=== PATIENT | female | born 1985 | race Caucasian/White ===

== ENCOUNTER 2021-06-02 00:16 | Emergency (ER) | payer OTHER, SELFPAY ==
[2021-06-02 00:20] VITALS: BP 154/87; PULSE 93; RESP 20; TEMP 36.4; O2SAT 99
--- NOTE | 2021-06-02 00:28 | ED.WOUNDLAC ---
HPI - Wound/Laceration General Chief Complaint: Wound/Laceration Stated Complaint: Finger Laceration Time Seen by Provider: 06/02/21 00:28 History of Present Illness HPI narrative: 36-year-old female patient is here with a cut to the tip of the right index finger with a measuring tape approximately at 10:00 p.m.. Patient states that she tried to control the bleeding with liquid Band-Aid at home and not work and it bleeds any time she hits the hand the against any thing. Unsure about her tetanus status Related Data Home Medications Medication Instructions Recorded Confirmed escitalopram oxalate 10 mg PO DAILY 06/02/21 06/02/21 Allergies Allergy/AdvReac Type Severity Reaction Status Date / Time No Known Allergies Verified 02/25/21 11:01 Review of Systems Review of Systems: All systems reviewed & are unremarkable except as noted in HPI and below Exam Narrative: patient is alert and appears in no acute distress. Vital signs are stable. Right index finger has less than 1 cm superficial laceration to the dip on the volar aspect. There is no gaping. There is very minimal bleeding. The rest of the hand appears normal. Patient otherwise has normal physical exam Course Course Emergency Course: the the superficial lacerations closed with derma abebe. Patient has been updated on a tetanus status. Discharge Plan Discharge Clinical Impression: Laceration Patient Disposition: Home, Self-Care Condition: Stable Instructions: Antibiotic Form Additional Instructions: Keep the finger dry and clean. Do not use any Band-Aids or any ointments. Prescriptions: No Action escitalopram oxalate 10 mg tablet 10 mg PO DAILY RF: 0 Follow-up/Referrals: UNKNOWN,DOCTOR [Primary Care Provider] -
[2021-06-02] MEDS: TETANUS,DIPHTHERIA,AC PERTUSSIS ADULT 0.5 ML (ADACEL) (00:39)
[2021-06-02 00:40] VITALS: BP 154/84; PULSE 93; RESP 20; TEMP 36.4; O2SAT 99
== END 2021-06-02 00:42 | disposition home or self-care (01) ==
PROVIDERS: Emergency Provider Emergency Medicine
DX: S61.210A Laceration without foreign body of right index finger without damage to nail, initial encounter (principal); W45.8XXA Other foreign body or object entering through skin, initial encounter
CPT/HCPCS: 12001; 90471; 90715; 99282

== ENCOUNTER 2022-08-29 17:17 | Emergency (ER) | payer OTHER, SELFPAY ==
--- NOTE | ~2022-08-29 | XR_ITS ---
EXAM: XR shoulder LT min 2V DATE: 08/29/2022 18:00 HISTORY: PAIN AFTER REPETITIVE MOVEMENT AT WORK. . COMPARISON: None available. FINDINGS: Normal mineralization. No fracture or dislocation. No lytic or blastic lesion. Joint space s are maintained. No erosion or periosteal change. Soft tissues within normal limits. IMPRESSION: No acute osseous finding in the left shoulder. Reviewed, dictated and finalized at location K.
[2022-08-29 17:22] VITALS: BP 146/99; PULSE 84; RESP 16; TEMP 36.6; O2SAT 99
[2022-08-29 17:27] VITALS: BP 146/99; PULSE 84; RESP 16; TEMP 36.6; O2SAT 99
--- NOTE | 2022-08-29 17:58 | ED.EXTPRO ---
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 SHE SAYS SHE DOES REPETITIVE MOTIONS WITH HER SHOULDER AND HER WORK IS [employer] TO MAKE IT WORSE. SHE HAS WORKED THERE FOR SEVERAL YEARS. SHE DENIES ANY NUMBNESS OR WEAKNESS. DENIES ANY TRAUMA. DENIES ANY OTHER PAIN OR INJURIES OR COMPLAINTS. SHE HAS BEEN TAKING IBUPROFEN 600 MG EVERY 6 TO 8 HOURS. DENIES ANY PAIN IN HER LEFT ELBOW SHOULDER OR NECK DENIES ANY BRUISING OR SWELLING. Related Data Home Medications Medication Instructions Recorded Confirmed escitalopram oxalate 10 mg tablet 10 mg PO DAILY 06/02/21 08/29/22 Allergies Allergy/AdvReac Type Severity Reaction Status Date / Time No Known Allergies Verified 02/25/21 11:01 Review of Systems Cardiovascular: Cardiovascular: Reports no additional cardiovascular complaints and Denies chest pain Respiratory: Respiratory: Reports no additional respiratory complaints, Denies cough and Denies dyspnea Musculoskeletal: Musculoskeletal: Reports no additional musculoskeletal complaints, Reports as per HPI, Denies back pain, Denies myalgias, Reports arthralgias, Denies joint swelling and Denies muscle cramps Exam Const: General: healthy appearing Nutritional Appearance: well nourished Orientation/consciousness: patient oriented x3 Limitations: no limitations Other: WHITE FEMALE APPEARS IN NO APPARENT DISTRESS. NECK IS SUPPLE NONTENDER WITH FULL RANGE OF MOTION. LEFT SHOULDER NEXT OF FULL RANGE OF MOTION. MILD POSTERIOR SHOULDER TENDERNESS OVER THE MUSCLES. THERE IS NO INCREASED PAIN WITH RANGE OF MOTION OF THE SHOULDER. ELBOW WRIST ARE FINE. NEUROVASCULAR INTACT TO THE LEFT UPPER EXTREMITY. MOTOR STRENGTH AND SENSATIONS NORMAL. LUNGS ARE CLEAR HEART IS REGULAR RATE RHYTHM WITHOUT MURMURS GALLOPS OR RUBS. HENMT: Head: normal to inspection Course Course Emergency Course: DISCUSSED EVALUATION AND PLAN. ALL QUESTIONS WERE ASKED AND ANSWERED. Vital Signs Vital signs: Vital Signs Temperature 36.6 C 08/29/22 17:22 Pulse Rate 84 08/29/22 17:22 Respiratory Rate 16 08/29/22 17:22 Blood Pressure 146/99 H 08/29/22 17:22 Pulse Oximetry 99 08/29/22 17:22 Oxygen Delivery Room Air 08/29/22 17:22 Temperature 36.6 C 08/29/22 17:27 Pulse Rate 84 08/29/22 17:27 Respiratory Rate 16 08/29/22 17:27 Blood Pressure 146/99 H 08/29/22 17:27 Pulse Oximetry 99 08/29/22 17:27 Oxygen Delivery Room Air 08/29/22 17:27 MDM - Extremity (Nontraumatic) Imaging Data Radiologist's impression: X-RAY LEFT SHOULDER WAS NEGATIVE. Discharge Plan Discharge Clinical Impression: Left shoulder strain Patient Disposition: Home, Self-Care Condition: Stable Instructions: Shoulder Sprain (ED) Additional Instructions: TYLENOL 1000 MG 4 TIMES A DAY NEEDED FOR PAIN . IBUPROFEN 400 MG EVERY 6 HOURS NEEDED FOR PAIN. MASSAGE WITH A TENNIS BALL DISCUSSED FOLLOW-UP WITH PRIVATE MEDICAL DOCTOR. RETURN IF YOU GET WORSE OR DEVELOPS ANY NEW SYMPTOMS. Prescriptions: No Action escitalopram oxalate 10 mg tablet 10 mg PO DAILY Follow-up/Referrals: UNKNOWN,DOCTOR [Primary Care Provider] -
[2022-08-29 18:15] VITALS: BP 146/99; PULSE 84; RESP 16; TEMP 36.6; O2SAT 99
== END 2022-08-29 18:26 | disposition home or self-care (01) ==
PROVIDERS: Emergency Provider Emergency Medicine
DX: S46.912A Strain of unspecified muscle, fascia and tendon at shoulder and upper arm level, left arm, initial encounter (principal)
CPT/HCPCS: 73030; 99283

== ENCOUNTER 2023-07-15 11:11 | Outpatient (CLI) | payer OTHER, SELFPAY ==
--- NOTE | ~2023-07-15 | MMUS_ITS ---
EXAMINATION: MM diagnostic grey BI w willem, US breast RT limited HISTORY: Upper outer quadrant right breast lump TECHNIQUE: Bilateral full-field ML, MLO and CC and spot right MLO and CC 3-D tomosynthesis images wer e performed and synthetic 2-D images were generated. CAD analysis was submitted and interpreted. High resolution right upper outer quadrant breast ultrasound was performed. COMPARISON: None BREAST PARENCHYMAL COMPOSITION: The breasts are heterogeneously dense, which may obscure small masses . FINDINGS: MAMMOGRAPHIC FINDINGS: No suspicious mass or architectural distortion, malignant calcification, skin thickening or retractio n is detected. ULTRASOUND: No suspicious mass or suspicious shadowing, cyst or other significant sonographic abnormalities detec earline in the upper outer quadrant of the right breast where the patient complains of a lump. IMPRESSION: 1. No mammographic or right upper outer quadrant sonographic evidence of malignancy; if there is any clinically suspicious palpable abnormality, further evaluation may be indicated as clinically appropr iate. 2. Routine annual mammographic screening is recommended BI-RADS Category 1: Negative Reviewed, dictated and finalized at location A. IMPRESSION: 1. No mammographic or right upper outer quadrant sonographic evidence of malign jarrett; if there is any clinically suspicious palpable abnormality, further evalu ation may be indicated as clinically appropriate. 2. Routine annual mammographic screening is recommended BI-RADS Category 1: Negative
== END 2023-07-15 11:12 | disposition home or self-care (01) ==
LOC: ANHIMG 11:16
PROVIDERS: PCP Obstetrics & Gynecology; Visit Provider Obstetrics & Gynecology
DX: N63.10 Unspecified lump in the right breast, unspecified quadrant (principal)
CPT/HCPCS: 76642; 77062; 77066; G0279

== ENCOUNTER 2024-06-28 10:15 | Emergency (ER) | payer OTHER, SELFPAY ==
--- NOTE | ~2024-06-28 | XR_ITS ---
Portable chest x-ray Comparison: None Clinical History: Shortness of breath Findings: Questionable minimal haziness left lung base. Right lung clear. Cardiomediastinal silhoue tte is stable. Bones and soft tissues are unremarkable. Impression: Possible subtle left lower lobe pneumonia. Reviewed, dictated and finalized at location . Impression: Possible subtle left lower lobe pneumonia.
[2024-06-28 10:15] VITALS: BP 134/82; PULSE 82; RESP 16; TEMP 36.7; O2SAT 100
[2024-06-28 10:26] VITALS: O2SAT 100
[2024-06-28 10:44] LABS: Add Urine Microscopic? YES; Appearance Urine Clear (Clear); Basophils Absolute Auto 0.02 K/mm3 (0.00-0.10); Basophils Percent Auto 0.3 % (0.0-1.0); Bilirubin Urine Negative (Negative); Blood Urine Negative (Negative); Color Urine Light Yellow (Yellow); Eosinophils Absolute Auto 0.11 K/mm3 (0.02-0.50); Eosinophils Percent Auto 1.7 % (1.0-6.0); Glucose Urine UA Negative (Negative); Hematocrit 39.5 % (35.0-49.0); Hemoglobin 13.7 g/dL (12.0-15.0); Immature Granulocyte Absolute 0.03 K/mm3 (0.00-0.00); Immature Granulocyte Percent A 0.5 % (0.0-0.0); Ketones Urine Negative (Negative); Leukocyte Esterase Ur Trace LEU/UL (Negative); Lymphocytes Absolute Auto 2.34 K/mm3 (1.10-4.50); Lymphocytes Percent Auto 35.7 % (18.0-42.0); Mean Corpuscular HGB Conc 34.7 g/dL (32-36); Mean Corpuscular Hemoglobin 31.1 pg (27.0-31.0); Mean Corpuscular Volume 89.6 fL (78.0-102.0); Mean Platelet Volume 9.6 fl (9.2-11.8); Monocytes Absolute Auto 0.79 K/mm3 (0.10-0.90); Monocytes Percent Auto 12.1 % (2.0-11.0); Neutrophils Absolute Auto 3.26 K/mm3 (1.70-7.20); Neutrophils Percent Auto 49.7 % (50.0-70.0); Nitrate Urine Negative (Negative); Platelet Count Result 261 K/mm3 (150-420); Protein Urine Negative (Negative); Red Blood Count 4.41 M/mm3 (4.20-5.40); Specific Grav Ur 1.015 (1.010-1.020); Urobilinogen Urine 0.2 mg/dL (0.2-1.0); White Blood Count 6.6 K/mm3 (4.8-10.8)
[2024-06-28 10:50] LABS: RBC Urine None seen /hpf (0-2); WBC Urine 0-3 /hpf (0-3)
[2024-06-28 10:51] LABS: Bacteria Urine Trace /hpf; Squamous Epithelial Cell Urine Few /hpf (Few)
[2024-06-28 10:57] LABS: D Dimer 0.23 mg/L (0.19-0.50)
[2024-06-28 11:05] LABS: Albumin Level 3.9 g/dL (3.4-5.0); Alkaline Phosphatase 80 U/L (46-116); Anion Gap 9 mmol/L (4-12); Aspartate Amino Transferase 13 U/L (15-37); Bilirubin,Total 0.3 mg/dL (0.00-1.00); Blood Urea Nitrogen 10 mg/dL (7-18); Carbon Dioxide 28 mmol/L (21-32); Chloride 101 mmol/L (98-108); Estimated CRCL calculation 63 ml/min; Estimated Glomerular Filt Rate > 60; Glucose 87 mg/dL (70-99); Osmolality Calculated 284 mOsm/kg (285-295); Potassium 3.6 mmol/L (3.5-5.1); Sodium 138 mmol/L (136-145); Total Protein 7.4 g/dL (6.4-8.2)
--- NOTE | 2024-06-28 11:13 | ED.FEMALEGU ---
HPI - Female Genitourinary General Chief complaint: Shortness of Breath/Dyspnea Stated complaint: shortness of breath Time Seen by Provider: 06/28/24 10:20 Source: patient Mode of arrival: ambulatory Limitations: no limitations History of Present Illness HPI Narrative: this is a 39-year-old female with no significant past medical history presents with some dysuria for the last couple of days called her primary and suggested she come in because she was also complaining of shortness of breath. Patient currently mildly short of breath is breathing easy no cough or congestion no fever chills does have suprapubic tenderness with palpation with dysuria with no hematuria. No fever chills no flank pain. MD elicited complaint: dysuria Onset (ago): day(s) Severity: mild Severity scale (1-10): 2 Quality of pain: dull Consistency: constant Related Data Home Medications Medication Instructions Recorded Confirmed No Home Medications 06/28/24 06/28/24 Allergies Allergy/AdvReac Type Severity Reaction Status Date / Time No Known Allergies Verified 06/28/24 10:17 Review of Systems Review of Systems: All systems reviewed & are unremarkable except as noted in HPI and below PMFSH Past Medical History Medical History Patient denies medical problems Exam Const: General: healthy appearing and no acute distress Nutritional Appearance: well nourished Orientation/consciousness: patient oriented x3 Limitations: no limitations HENMT: Head: normal to inspection Neck: Neck: normal visual inspection Chest: Chest palpation & inspection: normal inspection of the chest Resp: Effort & Inspection: normal respiratory effort Auscultation: clear to auscultation bilaterally Cardio: Rate: regular rate Rhythm: regular rhythm GI: GI Palp: Yes Soft to palpation Auscultation: normal bowel sounds : General: Yes Bladder palpation abnormal Urinary Catheter: Urinary Catheter: patent and draining Back/Spine/Pelvis: Back: no CVA tenderness Skin: General skin exam: normal color Rashes: no rashes Neuro: General: patient oriented x3 Cranial nerves: Yes Nystagmus not present Speech: normal speech Extrem: General: normal to inspection and no clubbing, cyanosis or edema Course Course Emergency Course: labs reviewed with patient patient had a urinalysis performed which shows positive for leukocytes chest x-ray showing subtle left lower lobe infiltrate / pneumonia and will give a g of ceftriaxone IM. Vital Signs Vital signs: Vital Signs Temperature 36.7 C 06/28/24 10:15 Pulse Rate 82 06/28/24 10:15 Respiratory Rate 16 06/28/24 10:15 Blood Pressure 134/82 06/28/24 10:15 Pulse Oximetry 100 06/28/24 10:15 Oxygen Delivery Room Air 06/28/24 10:15 Temperature 36.7 C 06/28/24 10:15 Pulse Rate 82 06/28/24 10:15 Respiratory Rate 16 06/28/24 10:15 Blood Pressure 134/82 06/28/24 10:15 Pulse Oximetry 100 06/28/24 10:26 Oxygen Delivery Room Air 06/28/24 10:26 MDM - Female Genitourinary Lab Data 06/28/24 10:38 06/28/24 10:38 Labs: Lab Results 06/28/24 Range/Units 10:38 WBC 6.6 (4.8-10.8) K/mm3 RBC 4.41 (4.20-5.40) M/mm3 Hgb 13.7 (12.0-15.0) g/dL Hct 39.5 (35.0-49.0) % MCV 89.6 (78.0-102.0) fL MCH 31.1 H (27.0-31.0) pg MCHC 34.7 (32-36) g/dL RDW 12.0 (11.6-14.4) % Plt Count 261 (150-420) K/mm3 MPV 9.6 (9.2-11.8) fl Immature Gran % (Auto) 0.5 H (0.0-0.0) % Neut % (Auto) 49.7 L (50.0-70.0) % Lymph % (Auto) 35.7 (18.0-42.0) % Hubbard % (Auto) 12.1 H (2.0-11.0) % Eos % (Auto) 1.7 (1.0-6.0) % Baso % (Auto) 0.3 (0.0-1.0) % Lymph # (Auto) 2.34 (1.10-4.50) K/mm3 Hubbard # (Auto) 0.79 (0.10-0.90) K/mm3 Eos # (Auto) 0.11 (0.02-0.50) K/mm3 Baso # (Auto) 0.02 (0.00-0.10) K/mm3 Abs Immat Gran (auto) 0.03 H (0.00-0.00) K/mm3 Absolute Neuts (
[2024-06-28 11:16] LABS: Alanine Aminotransferase 13 U/L (14-59)
[2024-06-28 11:19] LABS: SARS-CoV-2 RNA PCR Negative (Negative)
[2024-06-28 11:21] LABS: Influenza A QL RT-PCR Negative (Negative); Influenza B QL RT-PCR Negative (Negative); RSV RNA, RT-PCR Negative (Negative)
[2024-06-28] MEDS: cefTRIAXone 1 GM, LIDOCAINE HCL 1% LOCAL INJ 2.1 ML IM (11:32)
[2024-06-28 11:35] VITALS: BP 121/64; PULSE 84; RESP 18; TEMP 36.7; O2SAT 100
== END 2024-06-28 11:35 | disposition home or self-care (01) ==
PROVIDERS: Emergency Provider Emergency Medicine
DX: N30.00 Acute cystitis without hematuria (principal); Z20.822 Contact with and (suspected) exposure to COVID-19
CPT/HCPCS: 36415; 71045; 80053; 81001; 85025; 85380; 87637; 96372; 99283; J0696

== ENCOUNTER 2024-08-17 14:30 | Emergency (ER) | payer OTHER, SELFPAY ==
--- NOTE | ~2024-08-17 | XR_ITS ---
EXAMINATION: XR chest 2V 08/17/2024 15:17 INDICATION: Chest heaviness PROCEDURE: 2 view chest COMPARISON: 06/28/2024 FINDINGS: The lungs are clear. The cardiomediastinal silhouette is within normal limits. There are no pleural effusions. There is no pneumothorax suspected. IMPRESSION: 1: NO ACUTE CARDIOPULMONARY DISEASE. Reviewed, dictated and finalized at location B.
[2024-08-17 14:30] VITALS: BP 126/87; PULSE 86; RESP 18; TEMP 36.7; O2SAT 100
--- NOTE | 2024-08-17 15:22 | PC.NURSE ---
pt resting per cot, using phone. no needs at this time. awaiting lab/xray results.
--- NOTE | 2024-08-17 15:28 | ED.URI ---
HPI - URI/Sore Throat General Chief Complaint: Upper Respiratory Infection Stated Complaint: cough/ Short of breath Time Seen by Provider: 08/17/24 14:48 Source: patient and family Mode of arrival: ambulatory Limitations: no limitations History of Present Illness HPI Narrative: 33 years old white female came to the ED by private car complaining of cough with shortness of breath for roughly 1 week patient woke up at 2:00 a.m. a sore throat, dry cough, sneezing. Been taking ibuprofen at home. 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 She is not sure about sick contact. She denies any fever, chills, nausea, vomiting, chest pain, back pain or abdominal pain. Patient is healthy otherwise, she does vape, drink alcohol occasionally, marijuana occasionally Related Data Allergies Allergy/AdvReac Type Severity Reaction Status Date / Time No Known Allergies Verified 06/28/24 10:17 Review of Systems Review of Systems: All systems reviewed & are unremarkable except as noted in HPI and below PMFSH Past Medical History Medical History Patient denies medical problems Exam Narrative: General appearance: Well-developed, well-nourished Skin: Normal color Head: Normocephalic, nontraumatic Eyes: Clear conjunctiva ENT: Oropharynx normal, ears normal, nose normal Neck: Supple, nontender Chest and respiratory: Airway patent, no respiratory distress, no accessory muscle use Heart: Regular rate/rhythm Abdomen: Soft, nontender, no organomegaly, quiet bowel sounds Vascular: Normal peripheral pulses, normal capillary refill. Musculoskeletal: Normal range of motion, nontender back Neurologic: Alert and oriented ?3, ACID TREATER is normal as tested, no gross motor deficit Course Vital Signs Vital signs: Vital Signs Temperature 36.7 C 08/17/24 14:30 Pulse Rate 86 08/17/24 14:30 Respiratory Rate 18 08/17/24 14:30 Blood Pressure 126/87 08/17/24 14:30 Pulse Oximetry 100 08/17/24 14:30 Oxygen Delivery Room Air 08/17/24 14:30 Temperature 36.7 C 08/17/24 14:30 Pulse Rate 86 08/17/24 14:30 Respiratory Rate 18 08/17/24 14:30 Blood Pressure 126/87 08/17/24 14:30 Pulse Oximetry 100 08/17/24 14:30 Oxygen Delivery Room Air 08/17/24 14:30 MDM - URI/Sore Throat MDM Narrative Medical decision making narrative: patient came to the ED with the symptom of upper respiratory viral infection Vital signs are stable Physical examination is unremarkable Differential diagnosis upper respiratory viral infection Patient tested negative for COVID, flu and RSV Chest x-ray showed no acute abnormalities Diagnosis of upper respiratory viral infection patient was advised to get [id number] cold medicine. And to take Tylenol, ibuprofen as needed. Differential Diagnosis Differential diagnosis: Likely upper respiratory infection, viral infection and influenza Medical Records Attestation: I reviewed the patient's medical records. Lab Data Labs: Lab Results 08/17/24 Range/Units 14:53 Influenza A (RT-PCR) Pending Influenza B (RT-PCR) Pending RSV (RT-PCR) Pending SARS-CoV-2 RNA (RT-PCR) Pending Imaging Data Radiologist's impression: Impressions Chest X-Ray 08/17/24 15:18 IMPRESSION: 1: NO ACUTE CARDIOPULMONARY DISEASE. Critical Care Time Critical Care Time Critical Care Time: No Discharge Plan Discharge Clinical Impression: Upper respiratory infection, viral Patient Disposition: Home, Self-Care Condition: Stable Instructions: Cold Symptoms (ED) Additional Instructions: Return if symptoms are worsening , call
[2024-08-17 15:40] VITALS: BP 117/91; PULSE 70; RESP 16; O2SAT 100
[2024-08-17 15:42] LABS: SARS-CoV-2 RNA PCR Negative (Negative)
[2024-08-17 15:43] LABS: Influenza A QL RT-PCR Negative (Negative); Influenza B QL RT-PCR Negative (Negative); RSV RNA, RT-PCR Negative (Negative)
== END 2024-08-17 15:55 | disposition home or self-care (01) ==
PROVIDERS: Emergency Provider Emergency Medicine
DX: J06.9 Acute upper respiratory infection, unspecified (principal); B97.89 Other viral agents as the cause of diseases classified elsewhere; Z20.822 Contact with and (suspected) exposure to COVID-19
CPT/HCPCS: 71046; 87637; 99283

== ENCOUNTER 2025-02-22 15:29 | Outpatient (CLI) | payer OTHER, SELFPAY ==
--- NOTE | ~2025-02-22 | MM_ITS ---
EXAMINATION: MM screening grey BI w willem HISTORY: Screening TECHNIQUE: Craniocaudal and mediolateral oblique 3-D tomosynthesis images were obtained and synthetic 2-D images were generated. CAD analysis was submitted and interpreted. COMPARISON: 07/15/2023 BREAST PARENCHYMAL COMPOSITION: Dense: The breasts are heterogeneously dense, which may obscure small masses FINDINGS: There is a focal asymmetry laterally with increased density, anterior-middle depth. The lef t breast is stable without evidence for malignancy. IMPRESSION: 1. New focal right breast asymmetry seen on CC view only, located laterally, anterior-middle depth. 2. Additional mammographic views and possible breast ultrasound are recommended. BI-RADS Category 0: Incomplete: Needs additional imaging evaluation. Reviewed, dictated and finalized at location A. IMPRESSION: 1. New focal right breast asymmetry seen on CC view only, located laterally, an terior-middle depth. 2. Additional mammographic views and possible breast ultrasound are recommended . BI-RADS Category 0: Incomplete: Needs additional imaging evaluation.
--- OUTSIDE RECORDS SUMMARY | 2025-02-22 15:38 | XMS_ITS | Clinical Summary ---
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 Gender Identity Not on file Sexual Orientation Not on file Plan of Treatment Health Maintenance Due Date Last Done Comments Annual Physical 1989 Hepatitis C 2004 Hepatitis B Vaccines (1 of 3 - 19+ 3-dose series) 2005 Cervical Cancer Screening Pa p with HPV Testing (Age 30 to 64) Every 5 Years 2016 COVID-19 Vaccine (2023-2 5 season) 2024 11/20/2021, 06/30/2021 Cervical Cancer Screening Pa p Smear (Age 30 to 64) Every 3 Years 12/19/2026 12/19/2023 Cervical Cancer Screening wi th HPV 12/19/2026 DTaP, Tdap and Td Vaccines ( 2 - Td or Tdap) 06/02/2031 06/02/2021 HPV Vaccines Aged Out No longer eligi ble based on patient's age to complete this topic Meningococcal B Vaccine Aged Out No l onger eligible based on patient's age to complete this topic Meningococcal Vaccine Aged Out No merced aba eligible based on patient's age to complete this topic Pneumococcal Vaccine: Pediatrics (0 to 5 Years) and At-Risk Patients (6 to 49 Years) Aged Out No longer eligible b ased on patient's age to complete this topic RSV Immunizations Under 20 Months Aged Out No longer eligible b ased on patient's age to complete this topic Insurance Care Teams Billet Inspector Relationship Specialty Start Date End Date None, Provider, PCP - General UNKNOWN PHYSICIAN SPECIALTY 11/12/24
--- OUTSIDE RECORDS SUMMARY | 2025-02-22 15:38 | XMS_ITS | Clinical Summary ---
Author Organization [facility] Address [address] [place] [address] Care Team Providers Care Brand Ambassador Name Role Phone No, Physician Primary Care Provider [phone] Allergies Active Allergy Reactions Criticality Noted Date Comments Adhesive Rash Medium 12/07/[address] (CYMBALTA) 30 mg capsuleIndicati ons:Fibromyalgi a Take 1 capsule (30 mg total) by mouth daily 60 capsule 12/07/2024 Active Encounters Date Type Department Care Team Description 12/07/2024 3:22 PM [employer] OPER[employer] - 12/07/2024 5:28 PM [employer]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 Denies 12/07/2024 Comments Unknown Sex and Gender Information Value Date Recorded Sex Assigned at Not on file Legal Sex Female 1:15 PM [employer] OPER[employer] Gender Identity Not on file Sexual Orientation Not on file Obstetrics History Last Filed Vital Signs Vital Sign Reading Time Taken Comments Blood Pressure 123/79 12/07/2024 3:30 PM [employer] Pulse 69 12/07/2024 3:30 PM [employer] OPERATOR Temperature 36.9 C (98.4 F) 12/07/2024 3:30 PM [employer] OPERATOR Respiratory Rate 18 12/07/2024 3:30 PM [employer] OPERATOR Oxygen Saturation 100% 12/07/2024 3:30 PM [employer] OPERATOR Inhaled Oxygen Concentration - - Weight 61.2 kg (135 lb) 12/07/2024 1:39 PM [employer] OPER[employer] Height 152.4 cm (5') 12/07/2024 1:39 PM [employer] OPER[employer] Body Mass Index 26.37 12/07/2024 1:39 PM [employer] OPERATOR Plan of Treatment Health Maintenance Due Date Last Done Comments Cervical Cancer Screening 1986 Depression Screening 1986 Hepatitis C Screening 1986 DTaP/Tdap/Td Vaccine (1 - Tdap) 1997 Varicella Vaccines (1 of 2 - 13+ 2-dose series) 1999 Hepatitis B Screening 2004 Regular Well Visit/Exam 18-64 2004 Influenza Vaccine (Season Ended) 2025 HPV Vaccines Aged Out No longer eligi ble based on patient's age to complete this topic Pneumococcal vaccine <65 Aged Out No longer eligible based on patient's age to complete this topic Procedures Procedure Name Priority Date/Time Associated Diagnosis Comments ECG 12-LEAD STAT 12/07/2024 1:44 PM [employer] O[employer] from Last 3 Months Results * ECG 12-LEAD (12/07/2024 1:44 PM [employer] OPERATOR) Narrative [facility] - 12/07/2024 1:44 PM [employer] OPERATOR Kalyn Alvarez MD 12/07/2024 1:45 PM ECG 12 lead Date/Time: 12/07/2024 1:44 PM Performed by: Kalyn Alvarez MD Authorized by: Devan Dominique MD Rate: ECG rate: 75 ECG rate assessment: normal Rhythm: Rhythm: sinus rhythm Ectopy: Ectopy: none QRS: QRS intervals: Normal Conduction: Conduction: abnormal (Short WA) ST segments: ST segments: Normal T waves: T waves: normal Previous ECG: Previous ECG: Unavailable Interpretation: Interpretation: No acute injury pattern Recommended Follow-up: Recommended follow up: further workup in the ED Procedure Note Kalyn Alvarez MD - 12/07/2024 1:44 PM CST Procedure ECG 12 lead Date/Time: 12/07/2024 1:44 PM Performed by: Kalyn Alvarez MD Authorized by: Devan Dominique MD Rate: ECG rate: 75 ECG rate assessment: normal Rhythm: Rhythm: sinus rhythm Ectopy: Ectopy: none QRS: QRS intervals: Normal Conduction: Conduction: abnormal (Short [place]) ST segments: ST segments: Normal T waves: T waves: normal Previous ECG: Previous ECG: Unavailable Interpretation: Interpretation: No acute injury pattern Recommended Follow-up: Recommended follow up: further workup in the ED Kalyn Alvarez MD 12/07/24 [id number] Devan Dominique MD ECG ORDERABLES Final Re sult [facility] from Last 3 Months Insurance [employer] Care Teams Brand Ambassador Relationship Specialty Start Date End Date No, Physician PCP - General 12/07/24
--- OUTSIDE RECORDS SUMMARY | 2025-02-22 15:38 | XMS_ITS | Referral Summary ---
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] on file Legal Sex Female 1:15 PM PROFILE GRINDER Gender Identity Not on file Sexual Orientation Not on file Last Filed Vital Signs Vital Sign Reading Time Taken Comments Blood Pressure 123/79 12/07/2024 3:30 PM PROFILE GRINDER Pulse 69 12/07/2024 3:30 PM PROFILE GRINDER Temperature 36.9 C (98.4 F) 12/07/2024 3:30 PM PROFILE GRINDER Respiratory Rate 18 12/07/2024 3:30 PM PROFILE GRINDER Oxygen Saturation 100% 12/07/2024 3:30 PM PROFILE GRINDER Inhaled Oxygen Concentration - - Weight 61.2 kg (135 lb) 12/07/2024 1:39 PM PROFILE GRINDER Height 152.4 cm (5') 12/07/2024 1:39 PM PROFILE GRINDER Body Mass Index 26.37 12/07/2024 1:39 PM PROFILE GRINDER Plan of Treatment Not on file Procedures Procedure Name Priority Date/Time Associated Diagnosis Comments ECG 12-LEAD STAT 12/07/2024 1:44 PM PROFILE GRINDER from Last 3 Months Results * ECG 12-LEAD (12/07/2024 1:44 PM PROFILE GRINDER) Narrative [facility] - 12/07/2024 1:44 PM PROFILE GRINDER Kalyn Alvarez MD 12/07/2024 1:45 PM ECG 12 lead Date/Time: 12/07/2024 1:44 PM Performed by: Kalyn Alvarez MD Authorized by: Devan Dominique MD Rate: ECG rate: 75 ECG rate assessment: normal Rhythm: Rhythm: sinus rhythm Ectopy: Ectopy: none QRS: QRS intervals: Normal Conduction: Conduction: abnormal (Short MS) ST segments: ST segments: Normal T waves: [...] QRS intervals: Normal Conduction: Conduction: abnormal (Short MS) ST segments: ST segments: Normal T waves: T waves: normal Previous ECG: Previous ECG: Unavailable Interpretation: Interpretation: No acute injury pattern Recommended Follow-up: Recommended follow up: further workup in the ED Kalyn Alvarez MD 12/07/24 1345 us Devan Dominique MD ECG ORDERABLES Final Re sult [facility] from Last 3 Months Insurance IDPA IDPA Care Teams Paper Carrier Relationship Specialty Start Date End Date No, Physician PCP - General 12/07/24
--- OUTSIDE RECORDS SUMMARY | 2025-02-22 15:38 | XMS_ITS | Continuity of Care Document ---
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 Patient will come back in a year unless there are new symptoms. [email or web address] Not available 02/21/2025 10:26:53 Plan of Treatment Reminders Order Date Submit Date Provider Last Modified By Organization Details Last Modified Time Details Appointments None recorded. Lab pap, IG + HR HPV - HPV regardless but if HPV is positive need subtyping 16,18/45ad d STI to pap GC/CT/Tric h 2024 025 [facility] (Lab), [address], [place], [address], 5 15:25:05 Referral gastroente rologist referral 2024 025 [facility], [address], [address], [place], [address], 5 12:56:32 Procedures None recorded. Surgeries None recorded. Imaging MAMMO, screening, digital, bilateral - right dense breast tissue 2024 025 [email or web address], [address], [place], [address], 5 10:26:24 Medication Orders None recorded. Patient TargetsNo targets recorded. Patient InstructionsNo instructions recorded. 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 15:05:39 Bleeding [id number] Completed 201804/08/2021 Abnormal uterine and vaginal bleeding, unspecifi ed;Record ed Elsewhere : No Locati on: [facility] So urce: EHR Chron ic: N Practic e ID: [id number] Bill able Time: 11:30:00 AM Juju ames [facility] 1 15:05:35 Removal of intraute rine device Completed 201704/08/2021 REMOVAL OF IUD;Recor ded Elsewhere : No Locati on: [facility] So urce: EHR Chron ic: N Practic e ID: [id number] Bill able Time: 11:00:00 AM Juju [place] [facility] 1 15:05:37 Problem Notes None recorded. Procedures Surgical History Date Name Laterality Status Provider Name and Address Organization Details Recorded Time 03/16/20 24 IUD Removal completed Terrence Perez MD [address], [place], [address], [facility] 03/16/2024 16:55:09 12/19/19 24 Date of Last Pap Smear completed Irene Villatoro [facility] 12/19/2023 14:13:09 07/15/20 23 Date of Last Mammogram completed Irene Villatoro [facility] 12/19/2023 14:14:01 04/22/20 23 Excision and closure completed Terrence Perez MD [address], [place], [address], [facility] 04/22/2023 15:11:51 04/22/20 23 biopsy of vulva completed Irene Villatoro [facility] 12/19/2023 14:16:35 10/06/20 22 Colposcopy completed Terrence Perez MD [address], [place], [address], [facility] 10/06/2022 19:29:41 10/06/[address] [facility] 10/12/2022 12:20:31 05/07/20 21 Colposcopy completed Terrence Perez MD [address], [place], [address], [facility] 05/07/2021 19:01:16 05/07/[address] [facility] 04/12/2022 12:03:50 05/07/20 21 Colposcopy completed [facility] 04/12/2022 12:04:11 04/23/20 21 IUD Insertion completed Terrence Perez MD [address], [place], [address], [facility] 04/23/2021 11:55:39 10/31/19 21 extraction of wisdom tooth completed Irene Villatoro [facility] 12/19/2023 14:16:12 10/31/19 16 extraction of wisdom tooth completed Irene Villatoro [facility] 12/19/2023 14:16:05 05/23/20 05 Caesarean Section completed Irene Villatoro [facility] 12/19/2023 14:15:35 10/31/18 86 hernia repair completed Irene Villatoro [facility] 12/19/2023 14:16:50 Imaging Results None recorded. Procedure Notes None recorded. Medical Equipment None Reported. Allergies Allergen ID Allergen Name Allergen Category Reaction Reaction Severity Criticality Documentation Date Start Date Code Code System Note Provider Name and Address Organization Details Recorded Time 31687 ethinyl estradiol / norelgest romin medicatio n rash moderate Not available 04/08/2021 17329 7 RxNorm Juju [place] kwaku [facility] 16:32:46 Medications Name Sig Start Date Stop Date Status Note LastModified by Organization Details LastModified Time amoxicill in 500 mg capsule 04/08 completed Not Available Not Available Not Available Mirena 21 mcg/24 hr (up to 8 years) 52 mg intrauter ine device Take by intraute rine route. 03/16 completed Not Available Not Available Not Available bupropion HCl SR 150 mg tablet,12 hr sustained -release 12/19 completed Not Available Not Available Not Available hydrocodo ne 5 mg-acetam inophen 325 mg tablet 04/08 completed Not Available Not Available Not Available Adderall 5 mg tablet take 1 tablet by oral route 2 times every day before breakfas t and at noon 04/08 completed Prescrib ed Elsewher e: Yes Loca tion: Sarah schwartz [facility] M odify By: [email or web address] z Encoun ter DateTime : 02/04/20 18 01:45:00 PM Not Available Not Available Not Available metronida zole 500 mg tablet 04/08 completed Not Available Not Available Not Available imiquimod 5 % topical cream packet APPLY TO THE AFFECTED AREA(S) BY TOPICAL ROUTE 5 TIMES PER WEEK @ HS x 16wks. Rub in area until lotion is no longer visible. 04/05 completed Not Available Not Available Not Available diclofena c sodium 50 mg tablet,de layed release 02/10 /2023 completed Not Available Not Available Not Available ergocalci ferol (vitamin D2) 1,250 mcg (50,000 unit) capsule Take 1 capsule every week by oral route. 12/10 completed Not Available Not Available Not Available methylpre dnisolone 4 mg tablets in a dose pack 12/10 completed Not Available Not Available Not Available Prozac 10 mg capsule take 2 capsule by oral route every day 04/08 completed Prescrib ed Elsewher e: Yes Loca tion: [facility] odify By: [email or web address] Encoun ter DateTime : 02/04/20 01:45:00 PM Not Available Not Available Not Available sertralin e 50 mg tablet Take 1 tablet every day by oral route. 04/05 completed Not Available Not Available Not Available naproxen 500 mg tablet 04/12 completed Not Available Not Available Not Available escitalop dylon 10 mg tablet Take 1 tablet every day by oral route. 12/19 completed Not Available Not Available Not Available escitalop dylon 20 mg tablet 12/10 completed Not Available Not Available Not Available cyclobenz aprine 5 mg tablet 12/10 completed Not Available Not Available Not Available nitrofura ntoin monohydra te/macroc rystals 100 mg capsule Take 1 capsule every 12 hours by oral route for 7 days. 02/23 completed Not Available Not Available Not Available duloxetin e 30 mg capsule,d elayed release TAKE 1 CAPSULE BY MOUTH EVERY DAY 02/21 completed Not Available Not Available Not Available Cymbalta active Not Available Not Avai lable Not Available Xulane 150 mcg-35 mcg/24 hr transderm al patch apply 1 patch by transder mal route every week 04/08 completed Prescrib ed Elsewher e: No Locat ion: [facility] odify By: [email or web address] Encounte r DateTime : 02/10/20 19 09:00:00 AM Not Available Not Available Not Available BinaxNOW COVID-19 Ag Self Test kit TEST DIRECTED TODAY 12/10 completed Not Available Not Available Not Available Vitals Date Recorded Body height Body mass index (BMI) Body weight Systolic blood pressure Diastolic blood pressure Provider Name and Address Organization Details Last Updated DateTime 02/21/2025 162.56 cm 26.2 kg/m2 16760.48 g 142 mm[Hg] 85 mm[Hg] Mercedez Cook [facility] 10:27:20 Social History Question Answer Notes LastModified by Organizat ion Details LastModified Time Tobacco Smoking Status Former Smoker Zulema Gordon kwaku, [facility] 06/17/2023 10:45:19 Do You Have An Advance Directive? No Information not available 04/08/2021 What Is Your Level Of Alcohol Consumption? Occasional Information not available 04/08/2021 How Many Years Have You Consumed Alcohol? 10 Information not available 04/08/2021 Are You Blind Or Do You Have Difficulty Seeing? No Information not available 04/08/2021 What Is Your Level Of Caffeine Consumption? Moderate Information not available 04/08/2021 How Much Tobacco Do You Chew? None Information not available 04/08/2021 In The 14 Days Before Symptom Onset, Have You Had Close Contact With A Laboratory-confir med COVID-19 While That Case Was Ill? No Information not available 04/08/2021 In The 14 Days Before Symptom Onset, Have You Had Close Contact With A Person Who Is Under Investigation For COVID-19 While That Person Was Ill? No Information not available 04/08/2021 Have You Been To An Area Known To Be High Risk For COVID-19? No Information not available 04/08/2021 Are You Deaf Or Do You Have Serious Difficulty Hearing? No Information not available 04/08/2021 Do You Or Have You Ever Used E-cigarettes Or Vape? Current User Of Electronic Cigarettes [email or web address] Information not available 12/19/2023 What Is The Highest Grade Or Level Of School You Have Completed Or The Highest Degree You Have Received? 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 No Information not available 04/08/2021 Have You Ever Been Counseled For Unhealthy Alcohol Use? No [email or web address] Information not available 12/19/2023 Do You Use Protection During Sex? Usually Information not available 04/08/2021 Do You Use Your Seat Belt Or Car Seat Routinely? Yes Information not available 04/08/2021 Do You Have Smoke And Carbon Monoxide Detectors In Your Home? Yes Information not available 04/08/2021 How Much Tobacco Do You Smoke? No Information not available 04/08/2021 Do You Feel Stressed (tense, Restless, Nervous, Or Anxious, Or Unable To Sleep At Night)? [id number] [email or web address] Information not available 12/19/2023 Do You Use Any Illicit Or Recreational Drugs? No Information not available 04/08/2021 Do You Use Sunscreen Routinely? No Information not available 04/08/2021 Has Tobacco Cessation Counseling Been Provided? No [email or web address] Information not available 12/19/2023 Have You Used IV Drugs? No Information not available 04/08/2021 Do You Or Have You Ever Used Any Other Forms Of Tobacco Or Nicotine? Yes [email or web address] Information not available 12/19/2023 Sex: Unknown Functional Status Question Answer Note LastModified by Organizat ion Details LastModified Time Do you have difficulty walking or climbing stairs? No [email or web address] Information not available 12/19/2023 Are you able to walk? [email or web address] Information not available 04/08/2021 Are you able to care for yourself? Yes [email or web address] Information not available 12/19/2023 Do you have difficulty dressing or bathing? No [email or web address] Information not available 12/19/2023 What is your exercise level? None Information not available 04/08/2021 Mental Status None recorded. Family History Relationship Description Onset Age of this Age Resolved Age Notes LastModified by Organization Details LastModified Time Mother Cyst of ovary [email or web address] Not available 2024 10:01:53 Mother Hypertensive disorder Not available 2020 16:30:39 Father Malignant tumor of colon Not available 2020 16:30:53 Father Malignant tumor of lung Not available 2020 16:31:09 Maternal Grandmother Hypertensive disorder Not available 2020 16:31:19 Maternal Grandfather Malignant tumor of lung Not available 2020 16:31:30 Maternal Grandfather Hypertensive disorder Not available 2020 16:31:39 Maternal Grandfather Malignant neoplasm of brain [email or web address] Not available 2024 10:01:53 Medical History Condition Response Allergies (Food, seasonal, environmental ) Y Other Y Breast Cancer N Drug/Latex Allergies/Reactions Y Blood Transfusion N Dermatologic Disorders N Lung Disease N Defects or Inherited Disease N Breast Problem N Gestational Diabetes N Hematologic disorders N Anesthesia Complications N History of STI Y Deep Vein Thrombosis N Polycystic ovary syndrome N Anxiety Disorder Y Autoimmune disease Y Arthritis N Infertility N Polyps N Acid Reflux (GERD) N History of abnormal pap Y Cancer N Stroke N Varicosities N Neurologic/Epilepsy Y Endometriosis N High Cholesterol N Headaches N Fibromyalgia N Kidney Disease N Heart Problems N Kidney or Bladder Problems N Thyroid Problems N GI Problems Y Eating Disorder N Anemia N Psychiatric Illness Y Ovarian Cancer N Diabetes N Pulmonary (TB, Asthma) N Hepatitis/Liver Disease N No Past Medical History N Eczema N Urinary Tract Infection N Abuse/Domestic Violence N Asthma N Trauma/Violence N Depression/ depression Y Heart Disease N Pre-Eclampsia N Hypertension N Osteoporosis N Thrombophilias N Gynecological History Statement/Question Response Abnormal Pap Yes Flow Light Date of Last Mammogram 07/15/2023 Date of LMP 02/08/2025 N On BCP's at Conception? N STIs/STDs Yes Was last menstrual period normal Y HPV Vaccine N Colposcopy 05/07/2021 Duration of Flow (days) 5 Current Control Method None Age at First Child 20 Are cycles usually normal Y Frequency of Cycle (Q days) 30 Sexually Active? Y Menses Monthly Y Date of DEXA bone scan Age of first menstrual cycle 14 Date of Last Pap Smear 12/19/2023 Sexual Problems? N LMP Definite N Obstetrics History GPAL:G 3 P 3 0 0 3 Type Value Full Term 3 Living 3 Total 3 Past Encounters Encounter ID Performer Location Encounter Start Date Encounter Closed Date Diagnosis/Indication Diagnosis SNOMED-CT Code Diagnosis ICD10 Code Diagnosis Note [id number] SHANNON [facility] [address] [address] 02/21/2025 10:01:29 02/22/2025 10:26:24 Gynecologic examination [id number] Z01.419 WWEB - declined. Discussed TTC/timed IC/encoura ged daily PNVoffered fertility consult/RE I referral - she declined at this timePap - done todaySTI screen - gc/ct/tric h testing added to papRoutine labs - PCPBP precaution s discussedR TC in 1 yr or sooner if needed It is strongly advised to have an annual flu shot and up can obtain at most pharmacies . If you have not had a TDap shot in the last 10 years you should obtain one as well. Discussed with patient & provided with informatio n regarding the HPV vaccine if applicable . Encourage safe sexual practices, to use condoms and limit partners if not already in a monogamous relationsh ip. Do monthly self breast exams. BRCA testing is now available for patients with strong genetic history of female cancer. If interested contact the office. Engage in regular exercise. Avoid tobacco and illicit drugs. This lifestyle behavior pattern will lead to less health conditions and longer life span. If BMI greater than 25 dietary consult advised. Questions answered. Screening mammography 24 441720 Z12.31 Venereal d isease screening 625971986 Z11.3 Screening for malignant neoplasm of colon 764026294 Z12.11 referral for screening colonoscop y d/t fam hx Health Concerns Section Related Observation LastModified by Organization Detai ls LastModified Time None Recorded Concern Status LastModified by Organization Details LastModified Time None Recorded Payers Encounter Date Sequence Insurance Name Policy Number Policy Blair Covered Member ID Blair Member ID Guarantor Name 02/21/2025 1 [place] [employer] Phoebe Lewis [id number] Phoebe Lewis Notes Date Note Type Note Provider Name and Address Organization Details Recorded Time 02/21/2025 text/html Annual GYNReport ed bypatient.Menstrua l cycle:Normal menses Urinary symptoms:No hematuria; No incontinence Vulva:No genital lesion Vagina:Normal vaginal discharge Breast:No breast pain; No breast lump; No nipple discharge Current Contraception:Melani h control not practiced Sexual complaints:No sexual complaints; No pain during intercourse; Normal libido Menopausal Symptoms:No menopausal symptoms; Normal vaginal lubrication Psychological symptoms:No depression; No anxiety; No PMDD Preventive measures:Encourage self breast examination; Encourage regular exercise; Encourage no tobacco use; Encourage regular mammograms starting age 40Notes:39yo wwelast pap 12/2023 : nilm, HPV (-)mammogram last 2022 (done d/t dense breast) fam h/o father with colon cancer diagnosed age 41 TTC x 1 yr SHANNON Dwyer [address], [place], [address], [facility] 02/22/2025 09:26:43 OBGyn Episode No OBEpisode recorded.
--- OUTSIDE RECORDS SUMMARY | 2025-02-22 15:39 | XMS_ITS | Data Portability ---
Author Organization [facility] [place] Address [address] [place] [address] Care Team Providers Care Tank Builder Name Role Phone [facility] Primary Care Provider Assessment Encounter Date Assessment Date Assessment LastModified by Organization Details LastModified Time 01/30/2024 01/30/2024 This patient is a 38 -year-old female with pelvic pain. We have agreed to complete the evaluation with pelvic ultrasound. The patient will return after the pelvic ultrasound to discuss those findings and to develop a treatment plan. A comprehensive history and physical exam was performed today. We spent over 25 minutes [id number]. The patient was given precautions. She will contact clinic if pelvic pain increases in frequency or intensity. Also notify clinic of any new symptoms associated with pelvic pain. She does not appear to have an acute pelvic infection today, but was asked to contact us Immediately with nausea, vomiting, fever, chills. [email or web address] Not available 01/30/2024 16:42:51 02/21/2025 02/21/2025 Annual gynecological exam performed. Patient will come back in a year unless there are new symptoms. [email or web address] Not available 02/21/2025 10:26:53 Plan of Treatment Reminders Order Date Submit Date Provider Last Modified By Organization Details Last Modified Time Details Appointments None recorded. Lab pap, IG + HR HPV - HPV regardless but if HPV is positive need subtyping 16,18/45ad d STI to pap GC/CT/Tric h 2024 025 [facility] (Lab), [address], [place], [address], 15:25:05 test, urine 04/01/ 2024 04/01/2 024 [email or web address] [place], [address], [place], [address], 4 15:26:44 urinalysis , dipstick 2023 024 [email or web address] [place], [address], [place], [address], 4 15:28:05 Referral gastroente rologist referral 2024 025 [facility], [address], [place], [address], 5 12:56:32 Procedures None recorded. Surgeries None recorded. Imaging MAMMO, screening, digital, bilateral - right dense breast tissue 2024 025 [email or web address] [facility], [address], [place], [address], 5 10:26:24 US, pelvis [address]23 [address], [address], [place], [address], 4 21:56:27 US, transvagin al [address], [address], [place], [address], 4 21:56:27 Medication Orders None recorded. Patient TargetsNo targets recorded. Patient InstructionsNo instructions recorded. Reason for Referral Pool Hand Referral for Screening for malignant neoplasm of colon Referring Physician: Ivonne Gay, PROFESSIONAL BENEFITS SALES CONSULTANT, Encounter Date: 02/21/2025 Results Created Date Observation Date Name Description Value Unit Range Abnormal Flag Note LastModifiedBy Organization Detail LastModifiedTime 01/30/202024 urina lysis , dipst ick Leukocytes trace Not Available [facility] [address], [place], [address], 01/30/2024 15:27:05 01/30/20 24 01/30/2024 urina lysis , dipst ick Nitrite normal Not Available [place] [address], [place], [address], 01/30/2024 15:27:05 01/30/20 24 01/30/2024 urina lysis , dipst ick Urobilinogen normal Not Available [facility] alberto [address], [place], [address], 01/30/2024 15:27:05 01/30/20 24 01/30/2024 urina lysis , dipst ick Protein trace Not Available [place] [address], [place], [address], 01/30/2024 15:27:05 01/30/20 24 01/30/2024 urina lysis , dipst ick pH 8 Not Available [place] [address], [place], [address], 01/30/2024 15:27:05 01/30/20 24 01/30/2024 urina lysis , dipst ick Specific Duncan 1.000 Not Available [facility] [address], [place], [address], 01/30/2024 15:27:05 01/30/20 24 01/30/2024 urina lysis , dipst ick Ketone normal Not Available [place] [address], [place], [address], 01/30/2024 15:27:05 01/30/20 24 01/30/2024 urina lysis , dipst ick Bilirubin normal Not Available Sarah schwartz [address], [place], [address], 01/30/2024 15:27:05 01/30/20 24 01/30/2024 urina lysis , dipst ick Glucose normal Not Available [place] [address], [place], [address], 01/30/2024 15:27:05 01/30/20 24 01/30/2024 urina lysis , dipst ick Appearance normal Not Available [facility] juan [address], [place], [address], 01/30/2024 15:27:05 01/30/20 24 01/30/2024 urina lysis , dipst ick Color normal Not Available [place] [address], [place], [address], 01/30/2024 15:27:05 01/30/20 24 01/30/2024 pregn jarrett test, urine HCG negati ve Not Available [place] [address], [place], [address], 01/30/2024 15:26:02 02/10/20 24 02/10/2024 US, pelvi s No observ ation record ed. [facility] [address], [place], [address], 02/10/2024 17:49:12 02/10/20 24 02/10/2024 US, trans vagin al No observ ation record ed. [facility] [address], [place], [address], 02/10/2024 17:49:23 02/10/20 24 02/10/2024 US, pelvi s No observ ation record ed. [email or web address] [address], [place], [address], 02/10/2024 21:48:44 Result Notes None recorded. 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 15:05:39 Bleeding [id number] Completed 201804/08/2021 Abnormal uterine and vaginal bleeding, unspecifi ed;Record ed Elsewhere : No Locati on: [facility] So urce: EHR Chron ic: N Practic e ID: [id number] Bill able Time: 11:30:00 AM Jujufarida Vegas [facility] 15:05:35 Removal of intraute rine device Completed 201704/08/2021 REMOVAL OF IUD;Recor ded Elsewhere : No Locati on: [facility] So urce: EHR Chron ic: N Practic e ID: [id number] Bill able Time: 11:00:00 AM Juju ames [facility] 15:05:37 Problem Notes None recorded. Procedures Surgical History Date Name Laterality Status Provider Name and Address Organization Details Recorded Time 03/16/20 24 IUD Removal completed Terrence Perez MD [address], [place], [address], [facility] 03/16/2024 16:55:09 12/19/19 24 Date of Last Pap Smear completed Irene Villatoro [facility] 12/19/2023 14:13:09 07/15/20 23 Date of Last Mammogram completed Irene Villatoro [facility] 12/19/2023 14:14:01 04/22/20 23 Excision and closure completed Terrence Perez MD [address], [place], [address], [facility] 04/22/2023 15:11:51 04/22/20 23 biopsy of vulva completed Irene Villatoro [facility] 12/19/2023 14:16:35 10/06/20 22 Colposcopy completed Terrence Perez MD [address], [place], [address], [facility] 10/06/2022 19:29:41 10/06/20 22 Colposcopy completed Juju [facility] 10/12/2022 12:20:31 05/07/20 21 Colposcopy completed Terrence Perez MD [address], [place], [address], [facility] 05/07/2021 19:01:16 05/07/20 21 Colposcopy completed Juju [facility] 04/12/2022 12:03:50 05/07/20 21 Colposcopy completed Juju [facility] 04/12/2022 12:04:11 04/23/20 21 IUD Insertion completed Terrence Perez MD [address], [place], [address], [facility] 04/23/2021 11:55:39 10/31/19 21 extraction of wisdom tooth completed Irene Villatoro [facility] 12/19/2023 14:16:12 10/31/19 16 extraction of wisdom tooth completed Irene Villatoro [facility] 12/19/2023 14:16:05 05/23/20 05 Caesarean Section completed Irene Villatoro [facility] 12/19/2023 14:15:35 10/31/18 86 hernia repair completed Irene Villatoro [facility] 12/19/2023 14:16:50 Imaging Results Imaging Date Name Status LastModified by Organization Details LastModified Time 02/10/2024 US, pelvis completed [facility] [address], [place], [address], 02/10/2024 17:49:12 02/10/2024 US, transvaginal completed [facility] [address], [place], [address], 02/10/2024 17:49:23 02/10/2024 US, pelvis completed [email or web address] [address], [place], [address], 02/10/2024 21:48:44 Procedure Notes None recorded. Medical Equipment None Reported. Allergies Allergen ID Allergen Name Allergen Category Reaction Reaction Severity Criticality Documentation Date Start Date Code Code System Note Provider Name and Address Organization Details Recorded Time 51612 ethinyl estradiol / norelgest romin medicatio n rash moderate Not available 04/08/2021 63630 7 RxNorm Juju ames [facility] 16:32:46 Medications Name Sig [...] Prescrib ed Elsewher e: Yes Loca tion: [facility] odify By: [employer] z Encoun ter DateTime : 02/04/20 18 [...] c sodium 50 mg tablet,de layed release 12/10 completed Not Available Not Available Not [...] route every day 04/08 completed Prescrib ed Rivka e: Yes [facility] By: [email or web address] Encoun ter DateTime : 02/04/20 18 [...] Prescrib ed Elsewher e: No Locat ion: [facility] By: [email or web address] Encounte r DateTime : 02/10/20 09:00:00 AM Not Available Not Available Not Available [employer] COVID-19 Ag Self Test kit TEST DIRECTED TODAY 12/10 completed Not Available Not Available Not Available Vitals Date Recorded Body height Body mass index (BMI) Body weight Systolic blood pressure Diastolic blood pressure Provider Name and Address Organization Details Last Updated DateTime 01/30/2024 162.56 cm 22.5 kg/m2 64244.6 g 139 mm[Hg] 86 mm[Hg] Irene Villatoro [facility] 4 15:24:07 Date Recorded Body height Body mass index (BMI) Body weight Systolic blood pressure Diastolic blood pressure Provider Name and Address Organization Details Last Updated DateTime 02/24/2024 162.56 cm 23 kg/m2 16477.38 g 139 mm[Hg] 90 mm[Hg] Jillian Seo [facility] 4 11:00:13 Date Recorded Body height Body mass index (BMI) Body weight Systolic blood pressure Diastolic blood pressure Provider Name and Address Organization Details Last Updated DateTime 03/16/2024 162.56 cm 22.2 kg/m2 00450.13 g 131 mm[Hg] 84 mm[Hg] Hanna Laguna [facility] 4 15:18:21 Date Recorded Body height Body mass index (BMI) Body weight Systolic blood pressure Diastolic blood pressure Provider Name and Address Organization Details Last Updated DateTime 02/21/2025 162.56 cm 26.2 kg/m2 86885.48 g 142 mm[Hg] 85 mm[Hg] Mercedez Cook [facility] 5 10:27:20 Social History Question Answer Notes LastModified by Organizat ion Details LastModified Time Tobacco Smoking Status Former Smoker Zulema ames [facility] 06/17/2023 10:45:19 Do You [...] Or Vape? Current User Of Electronic Cigarettes [email or web address] Information not available 12/19/2023 What Is The Highest Grade Or Level Of School You Have Completed Or The Highest Degree You Have Received? 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 No Information not available 04/08/2021 Have You Ever Been Counseled For Unhealthy Alcohol Use? No Information not available 12/19/2023 Do You Use [...] Anxious, Or Unable To Sleep At Night)? [id number] [email or web address] Information not available 12/19/2023 Do You Use Any Illicit Or Recreational Drugs? No Information not available 04/08/2021 Do You Use Sunscreen Routinely? No Information not available 04/08/2021 Has Tobacco Cessation Counseling Been Provided? No Information not available 12/19/2023 Have You Used IV Drugs? No Information not available 04/08/2021 Do You Or Have You Ever Used Any Other Forms Of Tobacco Or Nicotine? Yes [email or web address] Information not available 12/19/2023 Sex: Unknown Functional Status Question Answer Note LastModified by Organizat ion Details LastModified Time Do you have difficulty walking or climbing stairs? No [email or web address] Information not available 12/19/2023 Are you able to walk? [email or web address] Information not available 04/08/2021 Are you able to care for yourself? Yes [email or web address] Information not available 12/19/2023 Do you have difficulty dressing or bathing? No [email or web address] Information not available 12/19/2023 What is your exercise level? None Information not available 04/08/2021 Mental Status None recorded. Family History Relationship Description Onset Age of this Age Resolved Age Notes LastModified by Organization Details LastModified Time Mother Cyst of ovary [email or web address] Not available 2024 10:01:53 Mother Hypertensive disorder Not available 2020 16:30:39 Father Malignant tumor of colon Not available 2020 16:30:53 Father Malignant tumor of lung Not available 2020 16:31:09 Maternal Grandmother Hypertensive disorder Not available 2020 16:31:19 Maternal Grandfather Malignant tumor of lung Not available 2020 16:31:30 Maternal Grandfather Hypertensive disorder Not available 2020 16:31:39 Maternal Grandfather Malignant neoplasm of brain [email or web address] Not available 2024 10:01:53 Medical History Condition Response Allergies (Food, seasonal, environmental ) Y Other Y Drug/Latex Allergies/Reactions Y Blood Transfusion N Breast Cancer N Dermatologic Disorders N Lung Disease N Defects or Inherited Disease N Breast Problem N Gestational Diabetes N Hematologic disorders N Anesthesia Complications N History of STI Y Deep Vein Thrombosis N Polycystic ovary syndrome N Anxiety Disorder Y Autoimmune disease Y Arthritis N Polyps N Infertility N Acid Reflux (GERD) N History of abnormal pap Y Cancer N Varicosities N Stroke N Neurologic/Epilepsy Y Endometriosis N High Cholesterol N Fibromyalgia N Headaches N Kidney Disease N Heart Problems N Thyroid Problems N Kidney or Bladder Problems N GI Problems Y Eating Disorder [...] SNOMED-CT Code Diagnosis ICD10 Code Diagnosis Note [id number] Terrence ePrez MD [place] [address] [address] 04/08/2021 14:55:04 04/08/2021 16:48:50 Gynecologic examination 28330194 Z01.419 This patient is here for her annual exam. A thorough history was taken. A physical exam was performed. Age appropriat e routine health screening was ordered, performed, and discussed. Recommende d testing was ordered. She was asked to follow up in one year. She will be informed of any test results. Cholestero l - to check Pap - today The patient is suffering from mixed anxiety/de pression. We talked about treatment options. We agreed to start Zoloft. We will start a trial of 50 mg of Zoloft daily. She will turn 4 weeks to discuss results. To place IUD at future visit. Mixed anxi ety and depressive disorder 477091586 F41.8 [id number] Terrence Perez MD [place] [address] [address] 04/12/2022 11:52:37 04/12/2022 12:40:29 Gynecologic examination 20489434 Z01.419 Z11.51 This patient is here for her annual exam. A thorough history was taken. A physical exam was performed. Age appropriat e routine health screening was ordered, performed, and discussed. Recommende d testing was ordered. She was asked to follow up in one year. She will be informed of any test results. Cholestero l - to check Pap - today [id number] Terrence Perez MD [place] [address] [address] 05/07/2021 09:34:17 05/07/2021 21:31:12 Screening procedure 77893395 Z13.9 Abnormal c ervical Papanicolaou smear 453816980 R87.619 colposcopi c examinatio n was performed. It was unsatisfac tory. ECC was performed. Otherwise it was a normal exam [id number] Terrence Perez MD [place] [address],[place] [address] 04/23/2021 10:27:31 04/23/2021 12:00:37 Contraception care management 433963831 Z30.9 IUD was inserted. The patient tolerated well. She follow-up in 1 month. [id number] Terrence Perez MD [place] [address],[place] [address] 05/06/2021 14:41:10 05/07/2021 10:50:47 Mixed anxiety and depressive disorder 400172267 F41.8 This patient is a 35-year-ol d female with abnormal Pap smear and she presents for follow-up on depression treatment. The patient has noticed improvemen t in her depression . She has have been trouble with orgasm. We have agreed to change Lexapro to perhaps improved this sexual side effect. We discussed abnormal Pap smear in detail. We talked about the etiology, natural history, treatment, follow-up, diagnosed 6, colposcopy . She is to return tomorrow for colposcopi c examnegin n. This was a detailed complex discussion of a complex topic. [id number] Terrence Perez MD [place] [address] [address] 10/06/2022 17:20:54 10/07/2022 14:24:35 Screening procedure 63784551 Z13.9 Dysplasia of cervix 7339 1008 N87.9 Colposcopy was performed. There was a lesion on just does side the external os in the transition zone on the patient's left side at the 4 o'clock position. ECC was also performed. That area was biopsied. Follow-up on those results and contact patient. [id number] Terrence Perez MD [place] [address] [address] 11/05/2022 10:49:42 11/05/2022 13:42:51 Dysplasia of cervix 21109637 N87.9 This patient is a 37-year-ol d female presents for follow-up after colposcopy . Biopsies revealed low-grade dysplasia or REYNALDO 1. Discussed the significan ce of REYNALDO 1. We agreed that no treatment was necessary. She will follow-up in 1 year for Pap smear. [id number] Maria Isabel Villalpando [facility] [address] [address] 12/10/2022 15:23:14 12/13/2022 15:59:58 Genital warts 298674252 A63.0 Trial of imiquimod sentCounse led on medication R/B's, Most common side effects, & use. All questions were answered to patient satisfacti on. RTO x 16wks or sooner if any issues. Time spent in visit is a total of 15 mins with at least 50% of visit consisting of counseling and review of plan of care. [id number] [facility] [address],[place] [address] 04/05/2023 16:38:25 04/05/2023 17:16:34 Lesion of labia 005751004 N90.9 Today we agreed on consult with MD Dr. Perez since this issue is in a sensitive area near clitoris.S top lotion given as it was irritating skin & providing no benefit.Un certain if this is truly HPV wart or skin tear?She voices she has only had it for 7mos and has had no vaginal traumas/pr egnancies other. Agreeable to MD consult.Ap pt made. Time spent in visit is a total of 15 mins with at least 50% of visit consisting of counseling and review of plan of care. [id number] Terrence Perez MD [place] [address],[place] [address] 04/22/2023 12:34:36 04/22/2023 15:21:07 Lesion of vulva 441886189 N90.89 excision and closure of vulvar lesion, 1 cm, she tolerated well. [id number] Terrence Perez MD [place] [address] [address] 06/17/2023 10:45:13 06/17/2023 11:35:55 Breast lump 30687245 N63.0 [age] old female presents for breast mass. It occasional ly is tender. It is smooth, immobile, and there are was nodular tissue throughout the breast bilaterall y. She states. She noticed it about a month ago. It has remained stable but is tender at times. No nipple discharge, no erythema, no induration . Exam-fibro cystic changes throughout both breasts bilaterall y. There is a distinct nodule in the right breast lateral to the nipple. Plan- screening mammogram, ultrasound of the breast. [id number] Terrence Perez MD [place] [address] [address] 12/19/2023 13:52:10 12/19/2023 14:47:03 Gynecologic examination 19642695 Z01.419 Z11.51 This patient is here for her annual exam. A thorough history was taken. A physical exam was performed. Age appropriat e routine health screening was ordered, performed, and discussed. Recommende d testing was ordered. She was asked to follow up in one year. She will be informed of any test results. Cholestero l - to check Pap - today [id number] Terrence Perez MD [place] [address] [address] 01/30/2024 14:51:55 01/30/2024 16:58:48 Pain in pelvis 82543031 R10.2 [id number] Ailyn Ace [place] [address] [address] 02/10/2024 15:21:45 02/10/2024 15:58:44 Pain in pelvis 94943776 R10.2 [id number] Terrence Perez MD [place] [address] [address] 02/24/2024 10:54:49 02/24/2024 15:56:47 Pain in pelvis 92113879 R10.2 this patient is a 38-year-ol d female presents for follow-up for pelvic pain. She reports improvemen t of her pain. It is still present. She is not extremely bothered by the pain. It does not affect her quality of life her activities daily living. We reviewed the ultrasound results together. I should pictures with her. We spent 20 minutes face-to-fa ce. More than 50% was counseling . The ultrasound did not show any concerns. She will follow-up as needed. We agreed to observe the pain follow-up as needed. [id number] Terrenec Perez MD [place] [address] [address] 03/16/2024 15:13:32 03/16/2024 17:00:17 Contraception care management 720128506 Z30.9 IUD was removed. The patient tolerated well. She follow-up As needed. [id number] SHANNON Dwyer [place] [address] [address] 02/21/2025 10:01:29 02/22/2025 10:26:24 Gynecologic examination 46042392 Z01.419 EB - declined. Discussed TTC/timed IC/encoura ged daily [...] consult advised. Questions answered. Screening mammography 24 094433 Z12.31 Venereal d isease screening 253512060 Z11.3 Screening for malignant neoplasm of colon 021754397 Z12.11 referral for screening colonoscop y d/t fam hx Health Concerns Section Related Observation LastModified by Organization Detai ls LastModified Time None Recorded Concern Status LastModified by Organization Details LastModified Time None Recorded Advance Directives Directive N: Payers Encounter Date Sequence Insurance Name Policy Number Policy Blair Covered Member ID Blair Member ID Guarantor Name 01/30/2024 1 [facility] - DOS ON OR AFTER 21 (MEDICAID REPLACEMENT - HMO) Phoebe Lewis [id number] Phoebe Lewis 02/10/2024 1 [facility] - DOS ON OR AFTER 21 (MEDICAID REPLACEMENT - HMO) Phoebe Lewis [id number] Phoebe Lewis 02/24/2024 1 [facility] - DOS ON OR AFTER 21 (MEDICAID REPLACEMENT - HMO) Phoebe Lewis [id number] Phoebe Lewis 03/16/2024 1 [facility] - DOS ON OR AFTER 21 (MEDICAID REPLACEMENT - HMO) Phoebe Lewis [id number] Phoebe Lewis 02/21/2025 1 [place] [facility] Phoebe Lewis [id number] Phoebe Lewis Notes Date Note Type Note Provider Name and Address Organization Details Recorded Time 01/30/2024 text/html 38-year-old fema le with pelvic pain. She has a sharp left-sided pelvic pain. It is located in the lower left side of the abdomen pelvis. It is intermittent. it started approximately 2 weeks ago. Has remained stable over time. It does not radiate. Nothing is palliative, nothing is provocative. She is some constipation. She has no urinary symptoms. Metaline is not painful. She denies any nausea, vomiting, fever, chills. She denies any abnormal vaginal discharge or abnormal vaginal bleeding. Terrence Perez MD [address], [place], [address], [facility] 01/30/2024 16:43:05 02/24/2024 text/html this patient is a 38-year-old female presents for follow-up for pelvic pain. She reports improvement of her pain. It is still present. She is not extremely bothered by the pain. It does not affect her quality of life her activities daily living. We reviewed the ultrasound results together. I should pictures with her. We spent 20 minutes [id number]. More than 50% was counseling. The ultrasound did not show any concerns. She will follow-up as needed. We agreed to observe the pain follow-up as needed. Terrence Perez MD [address], [place], [address], [facility] 02/24/2024 15:40:18 03/16/2024 text/html Patient presents for IUD removal. The procedure was explained to her in detail. She understands it. She understands risks, benefits, and alternatives. She is completed the informed consent process and is ready to proceed. Terrence Perez MD [address], [place], [address], [facility] 03/16/2024 16:56:39 02/21/2025 text/html Annual GYNReport ed bypatient.Menstrual cycle:Normal menses Urinary symptoms:No hematuria; No incontinence Vulva:No genital lesion Vagina:Normal vaginal discharge Breast:No breast pain; No breast lump; No nipple discharge Current Contraception: control not practiced Sexual complaints:No sexual complaints; [...] 41 TTC x 1 yr SHANNON Dwyer [address], [place], [address], [facility] 02/22/2025 09:26:43 OBGyn Episode Ob Episode Information Episode Created Date Number of Fetuses Patient Bloodtype Patient rh Status Prepregnancy Weight lbs Domestic Partner Domestic Partner Phone Father Name Chain Mender Status 04/08/20 21 1 CLOSED Fetus Data First Name Last Name Admitted to NICU Weight (g) Sex Living Outcome Pediatric Complications Fetus ID Race Codes Race Delivery Type 3203.26 6704 M Full Term [id number] Vaginal Delivery Landon Calculation Initial Landon Date Initial Exam Date Initial Exam Provider Initial Ultrasound Date Last Menstrual Period Date Ultra Sound Weeks Gestation 0 Eighteen To Twenty Week Landon Update Ultra Sound Date Fundal Height At Umbil Quickening Date Ultra Sound Latest Weeks Gestation Final Landon Confirmed By Final Landon Confirmed Date Final Landon Date Ultra Sound Latest Days Gestation 0 0 Menstrual History Last Menstrual Date Menses Monthly On Bcp Conception Prior Menses Frequency Hcg Plus Date Menarche Onset Age Delivery Information Delivery Date Delivery Type Labor Anesthesia Weeks Gestation Incision Type Labor Labor Length Hrs Delivered By Post Complications Tubal Sterilization Discharge Date Comments 5 Piyush Discharge Information Feeding Method Contraceptive Method Maternal HG B and HCT Levels Ob Episode Information Episode Created Date Number of Fetuses Patient Bloodtype Patient rh Status Prepregnancy Weight lbs Domestic Partner Domestic Partner Phone Father Name Chain Mender Status 04/08/20 21 1 CLOSED Fetus Data First Name Last Name Admitted to NICU Weight (g) Sex Living Outcome Pediatric Complications Fetus ID Race Codes Race Delivery Type 3572.03 7 F Full Term [id number] Primary Landon Calculation Initial Landon Date Initial Exam Date Initial Exam Provider Initial Ultrasound Date Last Menstrual Period Date Ultra Sound Weeks Gestation 0 Eighteen To Twenty Week Landon Update Ultra Sound Date Fundal Height At Umbil Quickening Date Ultra Sound Latest Weeks Gestation Final Landon Confirmed By Final Landon Confirmed Date Final Landon Date Ultra Sound Latest Days Gestation 0 0 Menstrual History Last Menstrual Date Menses Monthly On Bcp Conception Prior Menses Frequency Hcg Plus Date Menarche Onset Age Delivery Information Delivery Date Delivery Type Labor Anesthesia Weeks Gestation Incision Type Labor Labor Length Hrs Delivered By Post Complications Tubal Sterilization Discharge Date Comments 2 Kallei Breech Discharge Information Feeding Method Contraceptive Method Maternal HG B and HCT Levels Ob Episode Information Episode Created Date Number of Fetuses Patient Bloodtype Patient rh Status Prepregnancy Weight lbs Domestic Partner Domestic Partner Phone Father Name Chain Mender Status 04/08/20 21 1 CLOSED Fetus Data First Name Last Name Admitted to NICU Weight (g) Sex Living Outcome Pediatric Complications Fetus ID Race Codes Race Delivery Type 3288.54 2 F Full Term [id number] Vaginal Delivery Landon Calculation Initial Landon Date Initial Exam Date Initial Exam Provider Initial Ultrasound Date Last Menstrual Period Date Ultra Sound Weeks Gestation 0 Eighteen To Twenty Week Landon Update Ultra Sound Date Fundal Height At Umbil Quickening Date Ultra Sound Latest Weeks Gestation Final Landon Confirmed By Final Landon Confirmed Date Final Landon Date Ultra Sound Latest Days Gestation 0 0 Menstrual History Last Menstrual Date Menses Monthly On Bcp Conception Prior Menses Frequency Hcg Plus Date Menarche Onset Age Delivery Information Delivery Date Delivery Type Labor Anesthesia Weeks Gestation Incision Type Labor Labor Length Hrs Delivered By Post Complications Tubal Sterilization Discharge Date Comments 0 Lorelai Discharge Information Feeding Method Contraceptive Method Maternal HG B and HCT Levels
== END 2025-02-22 15:30 | disposition home or self-care (01) ==
LOC: ANHIMG 15:33
PROVIDERS: Visit Provider Obstetrics & Gynecology
DX: Z12.31 Encounter for screening mammogram for malignant neoplasm of breast (principal); N64.89 Other specified disorders of breast
CPT/HCPCS: 77063; 77067

== ENCOUNTER 2025-03-15 13:35 | Outpatient (CLI) | payer OTHER, MEDICAID, SELFPAY ==
--- OUTSIDE RECORDS SUMMARY | 2025-03-15 13:42 | XMS_ITS | Clinical Summary ---
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
--- OUTSIDE RECORDS SUMMARY | 2025-03-15 13:42 | XMS_ITS | Referral Summary ---
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 Gender Identity Not on file Sexual Orientation Not on file Last Filed Vital Signs Vital Sign Reading Time Taken Comments Blood Pressure 123/79 12/07/2024 3:30 PM SENIOR JAVASCRIPT ENGINEER Pulse 69 12/07/2024 3:30 PM SENIOR JAVASCRIPT ENGINEER Temperature 36.9 C (98.4 F) 12/07/2024 3:30 PM SENIOR JAVASCRIPT ENGINEER Respiratory Rate 18 12/07/2024 3:30 PM SENIOR JAVASCRIPT ENGINEER Oxygen Saturation 100% 12/07/2024 3:30 PM SENIOR JAVASCRIPT ENGINEER Inhaled Oxygen Concentration - - Weight 61.2 kg (135 lb) 12/07/2024 1:39 PM SENIOR JAVASCRIPT ENGINEER Height 152.4 cm (5') 12/07/2024 1:39 PM SENIOR JAVASCRIPT ENGINEER Body Mass Index 26.37 12/07/2024 1:39 PM SENIOR JAVASCRIPT ENGINEER Plan of Treatment Not on file Insurance IDPA IDPA Care Teams Headlight Adjuster Relationship Specialty Start Date End Date No, Physician PCP - General 12/07/24
--- OUTSIDE RECORDS SUMMARY | 2025-03-15 13:42 | XMS_ITS | Clinical Summary ---
Author Organization [facility] Address [address] [place] [address] Care Team Providers Care Industrial Eng Name Role Phone No, Physician Primary Care Provider [phone] Allergies Active Allergy Reactions Criticality Noted Date [...] on file Legal Sex Female 1:15 PM 3D ARTIST Gender Identity Not on file Sexual Orientation Not on file Obstetrics History Last Filed Vital Signs Vital Sign Reading Time Taken Comments Blood Pressure 123/79 12/07/2024 3:30 PM 3D ARTIST Pulse 69 12/07/2024 3:30 PM 3D ARTIST Temperature 36.9 C (98.4 F) 12/07/2024 3:30 PM 3D ARTIST Respiratory Rate 18 12/07/2024 3:30 PM 3D ARTIST Oxygen Saturation 100% 12/07/2024 3:30 PM 3D ARTIST Inhaled Oxygen Concentration - - Weight 61.2 kg (135 lb) 12/07/2024 1:39 PM 3D ARTIST Height 152.4 cm (5') 12/07/2024 1:39 PM 3D ARTIST Body Mass Index 26.37 12/07/2024 1:39 PM 3D ARTIST Plan of Treatment Health Maintenance Due Date [...] patient's age to complete this topic Insurance [employer] IDPA Care Teams Industrial Eng Relationship Specialty Start Date End Date No, Physician PCP - General 12/07/24
--- OUTSIDE RECORDS SUMMARY | 2025-03-15 13:43 | XMS_ITS | Data Portability ---
Author Organization [facility] [place] Address [address] [place] [address] Care Team Providers Care Public Relations Professional Name Role Phone [facility] Primary Care Provider Assessment Encounter Date Assessment [...] performed today. We spent over 25 minutes [id number]. The patient was given precautions. She will [...] a year unless there are new symptoms. [email or web address] Not available 02/21/2025 10:26:53 Plan of Treatment Reminders Order Date Submit Date Provider Last Modified By Organization Details Last Modified Time Details Appointments None recorded. Lab pap, IG + HR HPV - HPV regardless but if HPV is positive need subtyping 16,18/45add STI to pap GC/CT/Trich 2024 025 [facility] (Lab), [address], [place], [address], 13:54:42 test, urine 2023 024 [email or web address] [address], [address], [place], [address], 4 15:26:44 urinalysis, dipstick 2023 024 [email or web address] 1 [address], [address], [place], [address], 4 15:28:05 Referral gastroenter ologist referral 2024 025 [facility], [address], [place], [address], 5 04:02:21 Procedures None recorded. Surgeries None recorded. Imaging MAMMO, screening, digital, bilateral - right dense breast tissue 2024 025 [facility], [address], [place], [address], 5 09:51:00 US, pelvis 2023 024 [address], [address], [place], [address], 4 21:56:27 US, transvagina l 2023 [email or web address], [address], [place], [address], 4 21:56:27 Medication Orders None recorded. Patient TargetsNo targets recorded. Patient InstructionsNo instructions recorded. Reason for Referral Oncology Research Rn Referral for Screening for malignant neoplasm of colon Referring Physician: Ivonne Gay, CRIME SCENE ANALYST, Encounter Date: 02/21/2025 Results Created Date Observation Date Name Description Value Unit Range Abnormal Flag Note LastModifiedBy Organization Detail LastModifiedTime 01/30/2001/30/2024 urina lysis , dipst ick Leukocytes trace Not Available [facility] [address], [place], [address], 01/30/2024 15:27:05 01/30/20 24 01/30/2024 urina lysis , dipst ick Nitrite normal Not Available [place] [address], [place], [address], 01/30/2024 15:27:05 01/30/20 24 01/30/2024 urina lysis , dipst ick Urobilinogen normal Not Available [facility] alberto [address], [place], [address], 01/30/2024 15:27:05 01/30/20 24 01/30/2024 urina lysis , dipst ick Protein trace Not Available [place] [address], [place], [address], 01/30/2024 15:27:05 01/30/20 24 01/30/2024 urina lysis , dipst ick pH 8 Not Available [place] [address], [place], [address], 01/30/2024 15:27:05 01/30/20 24 01/30/2024 urina lysis , dipst ick Specific [place] 1.000 Not Available [facility] [address], [place], [address], 01/30/2024 15:27:05 01/30/20 24 01/30/2024 urina lysis , dipst ick Ketone normal Not Available [place] [address], [place], [address], 01/30/2024 15:27:05 01/30/20 24 01/30/2024 urina lysis , dipst ick Bilirubin normal Not Available Sarah schwartz [address], [place], [address], 01/30/2024 15:27:05 01/30/20 24 01/30/2024 urina lysis , dipst ick Glucose normal Not Available [place] [address], [place], [address], 01/30/2024 15:27:05 01/30/20 24 01/30/2024 urina lysis , dipst ick Appearance normal Not Available [facility] juan [address], [place], [address], 01/30/2024 15:27:05 01/30/20 24 01/30/2024 urina lysis , dipst ick Color normal Not Available [place] [address], [place], [address], 01/30/2024 15:27:05 01/30/20 24 01/30/2024 pregn jarrett test, urine HCG negati ve Not Available [place] [address], [place], [address], 01/30/2024 15:26:02 02/22/20 25 02/21/2025 IMAGE GUIDE D PAP AND HPV REGAR DLESS image guided Pap, HPV regardless of Pap result SEE RESULT S BELOW CASE REPOR T: Cytol ogy Gynec ologi ashanti Repor t Case: [id number] Autho jimbo g Provi priscilla: Ivonne Gay, LAB SUPPORT SERVICE TECH Colle cted: 02/21 1442 Order ing Locat ion: [place] Path[facility] Recei andrei: 02/22 1140 First Scree n: Ce evans, Milla ed, CT Rescr een: Clara Real, CT Speci men: Scree jodi Pap - Image d, Cervi x STATE MENT OF ADEQU ACY: Satis facto ry for evalu ation Trans forma tion zone compo nent prese nt ----- ----- ----- ----- ----- ----- ----- ----- ----- ----- ----- ----- ----- ----- ----- ----- ----- ---- FINAL DIAGN OSIS: Negat jessica for Intra epith elial Lesnathalie myrick or Orin ventura (NIL) . Elect susy reddy by Clara Real CT on 2024 at 1250 CDT ----- ----- ----- ----- ----- ----- ----- ----- ----- ----- ----- ----- ----- ----- ----- ----- ----- ---- HPV RESUL TS: HPV mRNA E6/E7 : No HPV mRNA Detec earline NOTE: This high risk HPV mRNA assay detec ts fourt een high- risk HPV types (16, 18, 31, 33, 35, 39, 45, 51, 52, 56, 58, 59, 66, 68) witho ut diffe renti ation . COMME NT: This speci men was revie wed by a Cytot echno logis t and/o r Patho logis t (as indic ated in this repor t) after evalu ation using the Thinp rep Imagi ng Syste m. CLINI ASHANTI INFOR MATIO N: Menst rual Statu s: LMP (if appli cable ): Clini ashanti Histo ry/Pr eviou s Pap: Type of Neopl sal (if appli cable ): Signi fican t Clini ashanti Findi ngs: Other Histo ry: Hormo vern (if appli cable ): PAP EDUCA KRISTAL L NOTE: The Pap Test is a scree jodi test with an inher ent false negat jessica rate. Liqui d-bas ed sampl ing may decre ase, but will not elimi joy, false negat jessica resul ts. A negat jessica resul t does not precl ude the prese nce and/o r devel opmen t of disea se, since the prese nce of abnor mal cells in the sampl e depen ds on the locat ion of the lesio n and sampl ing techn ique. Sukhi nued regul ar scree jodi is the best metho d of cance r preve ntion . If repor earline cytol ogic findi ng do not corre late with physi ashanti and/o r histo rical findi ngs, furth er inves tigat ion is recom veronica d, as clini eleazar warrhiwot nted. Not Available [facility] (Lab) [address], [place], [address], 02/26/2025 13:54:42 02/22/20 25 02/21/2025 TRICH OMONA S VAGIN KENNEDY (RRNA ) trichomonas vaginalis ribosomal RNA (rrna) Negati ve negati ve Not Available [facility] (Lab) [address], [place], [address], 02/26/2025 13:54:42 02/22/20 25 02/21/2025 CT/GC (CHINO) , THINP REP VIAL chlamydia trachomatis, PCR Negati ve negati ve Not Available [facility] (Lab) [address], [place], [address], 02/26/2025 13:54:43 02/22/20 25 02/21/2025 CT/GC (CHINO) , THINP REP VIAL neisseria gonorrhoeae, PCR Negati ve negati ve Not Available [facility] (Lab) [address], [place], [address], 02/26/2025 13:54:43 02/10/20 24 02/10/2024 US, pelvi s No observ ation record ed. [facility] [address], [place], [address], 02/10/2024 17:49:12 02/10/20 24 02/10/2024 US, trans vagin al No observ ation record ed. [facility] [address], [place], [address], 02/10/2024 17:49:23 02/10/20 24 02/10/2024 US, pelvi s No observ ation record ed. [email or web address], [place], [address], 02/10/2024 21:48:44 02/23/20 25 02/22/2025 MAMMO , scree jodi, digit al, bilat eral No observ ation record ed. [facility] [address], [place], [address], 03/04/2025 09:51:00 02/26/2002/22/2025 MAMMO , scree jodi, digit al, bilat eral No observ ation record ed. [address] (Mammography) [address], [place], [address], 02/26/2025 12:01:06 Result Notes None recorded. 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 1 15:05:39 Bleeding [id number] Completed 201804/08/2021 Abnormal uterine and vaginal bleeding, unspecifi ed;Record ed Elsewhere : No Locati on: [facility] So urce: EHR Chron ic: N Practic e ID: [id number] Bill able Time: 11:30:00 AM Juju ames [facility] 15:05:35 Removal of intraute rine device Completed 201704/08/2021 REMOVAL OF IUD;Recor ded Elsewhere : No Locati on: [facility] So urce: EHR Chron ic: N Practic e ID: [id number] Bill able Time: 11:00:00 AM Juju ames [facility] 15:05:37 Problem Notes None recorded. Procedures Surgical History Date Name Laterality Status Provider Name and Address Organization Details Recorded Time 03/16/20 24 IUD Removal completed Terrence Perez MD [address], [place], [address], [facility] 03/16/2024 16:55:09 12/19/19 24 Date of Last Pap Smear completed Irene Villatoro [facility] 12/19/2023 14:13:09 07/15/20 23 Date of Last Mammogram completed Irene Villatoro [facility] 12/19/2023 14:14:01 04/22/20 23 Excision and closure completed Terrence Perez MD [address], [place], [address], [facility] 04/22/2023 15:11:51 04/22/20 23 biopsy of vulva completed Irene Villatoro [facility] 12/19/2023 14:16:35 10/06/20 22 Colposcopy completed Terrence Perez MD [address], [place], [address], [facility] 10/06/2022 19:29:41 10/06/20 22 Colposcopy completed [facility] 10/12/2022 12:20:31 05/07/20 21 Colposcopy completed Terrence Perez MD [address], [place], [address], [facility] 05/07/2021 19:01:16 05/07/20 21 Colposcopy completed Juju Vegas [facility] 04/12/2022 12:03:50 05/07/20 21 Colposcopy completed Juju Vegas [facility] 04/12/2022 12:04:11 04/23/20 21 IUD Insertion completed Terrence Perez MD [address], [place], [address], [place] [facility] 04/23/2021 11:55:39 10/31/19 21 extraction of wisdom tooth completed Irene Villatoro [facility] 12/19/2023 14:16:12 10/31/19 16 extraction of wisdom tooth completed Irene Villatoro [facility] 12/19/2023 14:16:05 05/23/20 05 Caesarean Section completed Irene Villatoro [facility] 12/19/2023 14:15:35 10/31/18 86 hernia repair completed Irenenoelle Villatoro [facility] 12/19/2023 14:16:50 Imaging Results Imaging Date Name Status LastModified by Organization Details LastModified Time 02/10/2024 US, pelvis completed jas Inman [address], [place], [address], 02/10/2024 17:49:12 02/10/2024 US, transvaginal completed jas schwartz [address], [place], [address], 02/10/2024 17:49:23 02/10/2024 US, pelvis completed [email or web address] [address], [place], [address], 02/10/2024 21:48:44 02/22/2025 MAMMO, screening, digital, bilateral completed tab[address] [place] [address] Imaging [address], [place], [address], 03/04/2025 09:51:00 02/22/2025 MAMMO, screening, digital, bilateral completed [address] [place] [address] (Mammography) [address], [place], [address], 02/26/2025 12:01:06 Procedure Notes None recorded. Medical Equipment None Reported. Allergies Allergen ID Allergen Name Allergen Category Reaction Reaction Severity Criticality Documentation Date Start Date Code Code System Note Provider Name and Address Organization Details Recorded Time 40663 ethinyl estradiol / norelgest romin medicatio n rash moderate Not available 04/08/2021 79078 [id number] RxNorm Juju Vegas [place], [place] - [facility] 16:32:46 Medications Name Sig Start Date [...] Prescrib ed Elsewher e: Yes Loca tion: [facility] M odify By: [email or web address] z Encoun ter [...] Prescrib ed Elsewher e: Yes Loca tion: [facility] odify By: [email or web address] z Encoun ter DateTime [...] Prescrib ed Elsewher e: No Locat ion: [facility] odify By: [email or web address] Encounte r DateTime : [...] Updated DateTime 01/30/2024 162.56 cm 22.5 kg/m2 52414.6 g 139 mm[Hg] 86 mm[Hg] Irene Villatoro [facility] 4 15:24:07 Date Recorded Body height Body mass index (BMI) Body weight Systolic blood pressure Diastolic blood pressure Provider Name and Address Organization Details Last Updated DateTime 02/24/2024 162.56 cm 23 kg/m2 03369.38 g 139 mm[Hg] 90 mm[Hg] Jillian Seo [facility] 4 11:00:13 Date Recorded Body height Body mass index (BMI) Body weight Systolic blood pressure Diastolic blood pressure Provider Name and Address Organization Details Last Updated DateTime 03/16/2024 162.56 cm 22.2 kg/m2 31271.13 g 131 mm[Hg] 84 mm[Hg] Hanna Laguna [facility] 4 15:18:21 Date Recorded Body height Body mass index (BMI) Body weight Systolic blood pressure Diastolic blood pressure Provider Name and Address Organization Details Last Updated DateTime 02/21/2025 162.56 cm 26.2 kg/m2 10286.48 g 142 mm[Hg] 85 mm[Hg] Mercedez Cook [facility] 5 10:27:20 Social History Question Answer Notes LastModified by Organizat ion Details LastModified Time Tobacco Smoking Status Former Smoker [facility] 06/[facility]/2023 10:45:19 Do You Have An Advance Directive? No Information n ot available 04/08/2021 How Many Years Have You Consumed Alcohol? 10 Information not available 04/08/2021 Are You Blind Or Do You Have Difficulty Seeing? No Information n ot available 04/08/2021 What Is Your Level Of Caffeine Consumption? Moderate Information not available 04/08/2021 How Much Tobacco Do You Chew? None Information not available 04/08/2021 In The 14 Days Before Symptom Onset, Have You Had Close Contact With A Laboratory-confirm ed COVID-19 While That Case Was Ill? No Information n ot available 04/08/2021 In The 14 Days Before [...] Difficulty Hearing? No Information not available 04/08/2021 What Is The Highest Grade Or Level Of School You Have Completed Or The Highest Degree You Have Received? [id number] Information not available 04/08/2021 Are There Any Guns Present In Your [...] Has Tobacco Cessation Counseling Been Provided? No [email or web address] Information not available 12/19/2023 Have You Used IV Drugs? No Information not available 04/08/2021 Do You Have Difficulty Walking Or Climbing Stairs? No [email or web address] Information not available 12/19/2023 Sex: Unknown Functional Status Question Answer Note LastModified by Organizat ion Details LastModified Time Do you use any illicit or recreational drugs? No Information not available 04/08/2021 Do you or have you ever used any other forms of tobacco or nicotine? Yes [email or web address] Information not available 12/19/2023 What is your level of alcohol consumption? Occasional Information not available 04/08/2021 Are you able to walk? YESWOREST Information not available 04/08/2021 Are you able to care for yourself? 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 No [email or web address] Information not available 12/19/2023 Do you or have you ever used e-cigarettes or vape? Current user of electronic cigarettes [email or web address] Information not available 12/19/2023 What is your exercise level? None Information not available 04/08/2021 Mental Status Question Answer Note LastModified by Organization D etails LastModified Time Do you feel stressed (tense, restless, nervous, or anxious, or unable to sleep at night)? [id number] [email or web address] Information not available 12/19/2023 Family History Relationship Description Onset Age of this Age Resolved Age Notes LastModified by Organization Details LastModified Time Mother Cyst of ovary [email or web address] Not available 2024 10:01:53 Mother Hypertensive disorder Not available 2020 16:30:39 Father Malignant tumor of colon Not available 2020 16:30:53 Father Malignant neoplasm of lung Not available 2020 16:31:09 Maternal Grandmother Hypertensive disorder Not available 2020 16:31:19 Maternal Grandfather Malignant neoplasm of lung Not available 2020 16:31:30 Maternal Grandfather Hypertensive disorder Not available 2020 16:31:39 Maternal Grandfather Malignant neoplasm of brain [email or web address] Not available 2024 10:01:53 Medical History Condition [...] SNOMED-CT Code Diagnosis ICD10 Code Diagnosis Note [id number] Terrence Perez MD [place] [address] [address] 04/08/2021 14:55:04 04/08/2021 16:48:50 Gynecologic examination [id number] Z01.419 This patient is here for her [...] visit. Mixed anxi ety and depressive disorder [id number] F41.8 [id number] Terrence Perez MD [place] [address],[place] [address] 04/12/2022 11:52:37 04/12/2022 12:40:29 Gynecologic examination 48534856 Z01.419 Z11.51 This patient is here for her annual exam. A thorough history was taken. A physical exam was performed. Age appropriat e routine health screening was ordered, performed, and discussed. Recommende d testing was ordered. She was asked to follow up in one year. She will be informed of any test results. Cholestero l - to check Pap - today [id number] Terrence Perez MD [place] [address],[place] [address] 05/07/2021 09:34:17 05/07/2021 21:31:12 Screening procedure 10371971 Z13.9 Abnormal c ervical Papanicolaou smear [id number] R87.619 colposcopi c examinatio n was performed. It was unsatisfac tory. ECC was performed. Otherwise it was a normal exam [id number] Terrence Perez MD [place] [address],[place] [address] 04/23/2021 10:27:31 04/23/2021 12:00:37 Contraception care management 731989717 Z30.9 IUD was inserted. The patient tolerated well. She follow-up in 1 month. [id number] Terrence Perez MD [place] [address] [address] 05/06/2021 14:41:10 05/07/2021 10:50:47 Mixed anxiety and depressive disorder 953800160 F41.8 This patient is a 35-year-ol d female with abnormal Pap smear and she presents for follow-up on depression treatment. The patient has not [id number]||2025-03-15 14:41:00|MMUS_ITS|BURKT|Imaging|[id number]|"EXAMINATION: MM diagnostic grey RT w willem, US breast RT limited HISTORY: Follow-up right breast asymmetry TECHNIQUE: Additional 3-D tomosynthesis images of the right breast were performed and synthetic 2-D i mages were generated. CAD analysis was submitted and interpreted. High resolution Limited right breas t ultrasound was performed. COMPARISON: Comparison to multiple prior studies sequentially, with oldest reviewed study dated 07/15/2023. BREAST PARENCHYMAL COMPOSITION: Dense: The breasts are heterogeneously dense, which may obscure small masses FINDINGS: MAMMOGRAPHIC FINDINGS: There are no suspicious masses, calcifications or architectural distortion in the right breast to sug gest malignancy. ULTRASOUND: Limited right breast ultrasound: At 6:00 near the nipple there is a cluster of microcysts measuring 6 mm in aggregate. At 9:00, 2 cm from the nipple there is a 6 mm cyst. At 12:00, 3 cm from the nipple there is a small cyst. There are mildly prominent ducts in the subareolar location. IMPRESSION: 1. No evidence for malignancy in the right breast. 2. Routine yearly screening mammogram and regular clinical breast examination are recommended. BI-RADS Category 2: Benign finding(s). Reviewed, dictated and finalized at location A. IMPRESSION: 1. No evidence for malignancy in the right breast. 2. Routine yearly screening mammogram and regular clinical breast examination a re recommended. BI-RADS Category 2: Benign finding(s). IMPRESSION: 1. No evidence for malignancy in the right breast. 2. Routine yearly screening mammogram and regular clinical breast examination a re recommended. BI-RADS Category 2: Benign finding(s). "
== END 2025-03-15 13:36 | disposition home or self-care (01) ==
LOC: ANHIMG 13:37
PROVIDERS: Visit Provider Obstetrics & Gynecology
DX: R92.8 Other abnormal and inconclusive findings on diagnostic imaging of breast (principal)
CPT/HCPCS: 76642; 77061; 77065; G0279